=== PATIENT | male | born 1955 | race Caucasian/White ===

== ENCOUNTER → 2016-07-29 | Day surgery (SDC) | payer BC ==
[~2016-07-29] MED LIST: ASPIRIN 81 MG CHEWABLE TAB PO SCH; ATROPINE SULFATE 1 MG/10 ML SYR ONE; BUPIVACAINE 0.5% 30 ML SDV ONE; HEPARIN 10,000 UNIT/10 ML MDV ONE; ISOPROTERENOL HCL 0.2 MG/ML 5ML AMP ONE; LIDOCAINE 1% 30 ML SDV ONE; LIDOCAINE 2% JELLY 5 ML TUBE ONE; MIDAZOLAM 2 MG/2 ML VIAL ONE; NS 1,000 ML IV ONE; OXYCODONE/APAP 5/325 TAB PO PRN; PROPOFOL/EMULSION 500 MG/50 ML BOTTLE IV ONE
--- NOTE | 2016-07-29 11:36 | CPEKG ---
Heart Rate: 64 RR Interval: 938 P-R Interval: 184 QRSD Interval: 108 QT Interval: 464 QTC Interval: 479 P Delano: 41 QRS Delano: -2 T Wave Delano: 4 EKG Severity - BORDERLINE ECG - EKG Impression: SINUS RHYTHM EKG Impression: PROBABLE LEFT ATRIAL ABNORMALITY EKG Impression: BORDERLINE PROLONGED QT INTERVAL Electronically Signed By: Jay Ratliff 29-Jul-2016 19:46:20
[2016-07-29 11:56] LABS: % IMMATURE GRANULYOCYTES 0.3 % (0.0-1.1); ABSOLUTE IMMATURE GRANULOCYTES 0.02 10^3/uL (0.00-0.10); ADD DIFF? NO; ADD MORPH? NO; ADD SCAN? NO; ATYPICAL LYMPHOCYTE FLAG 0 (0-99); FRAGMENT RBC FLAG 0 (0-99); HEMATOCRIT 50.9 % (40.0-51.0); HEMOGLOBIN 18.1 g/dL (13.7-17.5); LEFT SHIFT FLG 0 (0-99); LIPEMIA HEMOLYSIS FLAG 90 (0-99); MEAN CELL HEMOGLOBIN 31.2 pg (27.9-34.1); MEAN CELL HEMOGLOBIN CONCENTR. 35.6 g/dL (32.4-36.7); MEAN CELL VOLUME 87.8 fL (81.5-99.8); MEAN PLATELET VOLUME 9.9 fL (8.7-11.7); PLATELET CLUMPS FLAG 10 (0-99); PLATELET COUNT 190 10^3/uL (150-400); RED CELL DISTRIBUTION WIDTH 12.8 % (11.5-15.2)
[2016-07-29 12:06] LABS: INR 1.03 (0.83-1.16); PROTIME(PATIENT) 13.4 SEC (12.0-15.0)
[2016-07-29 12:16] LABS: ANION GAP 13 mEq/L (8-16); CALCIUM 9.5 mg/dL (8.5-10.4); CARBON DIOXIDE 29 mEq/l (22-31); CHLORIDE 101 mEq/L (97-110); CREATININE 1.3 mg/dL (0.7-1.3); GLOMERULAR FILTRATION RATE 56; GLUCOSE 100 mg/dL (70-100); MAGNESIUM 1.8 mg/dL (1.6-2.3); POTASSIUM 3.8 mEq/L (3.5-5.2); SODIUM 143 mEq/L (134-144)
--- NOTE | 2016-07-29 16:29 | EPPROC ---
Electrophysiology Procedure Note: DIAGNOSTIC ELECTROPHYSIOLOGIC STUDY Procedures performed: 1. Fluoroscopy 2. EP evaluation with RA/RV/LA pace/record, with arrhythmia induction 3. EP evaluation with RA/RV pace record, insert/reposition catheter, with arrhythmia induction 4. Programmed stimulation + pacing after IV drug INDICATION: Nonsustained VT Lateral LV scar seen on MRI PROCEDURE: Catheters & Anesthesia: The patient arrived in the Electrophysiology Laboratory in the fasting state. The right clavicular region, right groin, & left groin area were prepped & draped in the usual sterile manner. Sedation was administered by anesthesiologist. Appropriate non-invasive blood pressure, pulse oximetry & end-tidal CO2 monitoring was established. All catheters were placed percutaneously using the modified Seldinger technique , and advanced into position under fluoroscopic guidance. One #7 [place] deflectable octapolar electrode catheter was advanced to the His-bundle position via the r femoral vein (2mm spacing). One #7 [place] deflectable catheter with 10 pairs of electrodes was placed via the right femoral vein into the coronary sinus. Programmed stimulation was performed from the right atrium, right ventricle and coronary sinus (left atrium and left ventricle). Parahisian pacing demonstrated constant H-A interval with changing V-A intervals and stimulus-A intervals during capture and loss of capture of proximal RBB proving retrograde conduction over AV node. Heparin was administered to keep ACT > 200 seconds. No sustained reentrant tachycardia was induced during programmed stimulation at baseline or during graded doses of isoproterenol up to 2 mcg/min. Ventricular programmed stimulation was performed using standard protocol (2 pacing sites, 2 basic cycle lengths, up to 3 extrastimuli at twice pacing threshold). Pacing from both RV and LV (lateral branch of CS) Ventricular burst pacing and long/short sequence pacing was also performed. Nonsustained polymorphic VT was induced. The catheters were removed. The patient was transferred to the cardiovascular holding area in stable condition. Vascular access sheaths were removed in the holding area. There were no apparent complications. Results: A. Spontaneous Intervals: SCL 810 ms AH 85 ms HV 45 ms B. Antegrade AV yulia function (decremental pacing) FPERP 420 ms WBB CL 410 ms C. Retrograde AV yulia function (decremental pacing) FPERP 400 ms WBB CL 390 ms CONCLUSIONS 1. Normal sinus and AV node function. 2. No evidence of accesory AV pathway presence. 3. No sustained arrhythmias induced. 4. No apparent complications. Patient Problems: Problems Problem Status Diagnosed Nonsustained ventricular tachycardia Acute
== END | disposition home or self-care (01) ==
LOC: FCATH 11:00
PROVIDERS: ATTEND Internal Medicine Cardiovascular Disease
PROC: 4A023FZ Measurement of Cardiac Rhythm, Percutaneous Approach (ICD-10-PCS; principal; 2016-07-29)
DX: I47.2 Ventricular tachycardia (principal); I10 Essential (primary) hypertension; E78.5 Hyperlipidemia, unspecified
CPT/HCPCS: 93005; 93620; 93621; 93623; C1731; J0461; J1644; J2250; J2704

== ENCOUNTER → 2017-01-20 | Outpatient (CLI) | payer BC ==
[~2017-01-20] MED LIST changes: -ASPIRIN 81 MG CHEWABLE TAB PO SCH; -ATROPINE SULFATE 1 MG/10 ML SYR ONE; -BUPIVACAINE 0.5% 30 ML SDV ONE; -HEPARIN 10,000 UNIT/10 ML MDV ONE; +IOPAMIDOL (ISOVUE-300) 100 ML BTL ONE; -ISOPROTERENOL HCL 0.2 MG/ML 5ML AMP ONE; -LIDOCAINE 1% 30 ML SDV ONE; -LIDOCAINE 2% JELLY 5 ML TUBE ONE; -MIDAZOLAM 2 MG/2 ML VIAL ONE; -NS 1,000 ML IV ONE; -OXYCODONE/APAP 5/325 TAB PO PRN; -PROPOFOL/EMULSION 500 MG/50 ML BOTTLE IV ONE
== END ==
LOC: CIMAGING 13:05
PROVIDERS: ATTEND Internal Medicine
DX: R93.421 Abnormal radiologic findings on diagnostic imaging of right kidney (principal); R31.9 Hematuria, unspecified; R10.9 Unspecified abdominal pain; N40.0 Benign prostatic hyperplasia without lower urinary tract symptoms
CPT/HCPCS: 74177-PO; Q9967